=== PATIENT | male | born 1995 | race Caucasian/White ===

== ENCOUNTER 2021-06-11 10:32 | Emergency (ER) | payer BC, SELFPAY ==
--- NOTE | 2021-06-11 10:34 | ED.BACK ---
HPI - Back Pain/Injury General Chief Complaint: Back Pain/Injury Stated Complaint: lower back pain Time Seen by Provider: 06/11/21 10:33 Source: patient and RN notes reviewed History of Present Illness HPI Narrative: Patient is a 25-year-old male who presents the urgent care with complaints of pain right to the coccyx. Patient states that with some Google search he feels that it may be an abscess of some sort . Patient denies of any fevers, chills, nausea or vomiting. Patient denies of any known injury or fall to create the pain. Patient has been taking Tylenol without much relief. States that he noted the tenderness on Monday and seem to have gotten larger on . Denies of any increase in size or pain since afternoon. No other acute complaints. No acute distress noted. Patient aware of the plan of care. Some parts of this dictation were generated by voice recognition software and may contain typographical and/or grammatical inaccuracies. Related Data Home Medications Medication Instructions Recorded Confirmed No Home Medications 06/11/21 06/11/21 Allergies Allergy/AdvReac Type Severity Reaction Status Date / Time No Known Allergies Allergy Verified 06/11/21 10:46 Review of Systems Review of Systems: CONSTITUTIONAL: Denies fever, chills, or sweats. EYES: Denies visual changes, redness, or discharge. ENT: Denies rhinorrhea, congestion, sore throat, or otalgia. CARDIOVASCULAR: Denies chest pain, palpitations, or edema. RESPIRATORY: Denies cough or dyspnea. GASTROINTESTINAL: Denies abdominal pain, nausea, vomiting, or diarrhea. GENITOURINARY: Denies dysuria or hematuria. SKIN: Denies rash or itching. MUSCULOSKELETAL: Reports of low coccyx/back pain and tenderness NEUROLOGIC: Denies headache, numbness, or weakness. All other systems reviewed are negative, except as documented in HPI. PMFSH Comments At the time of my signature, I reviewed and agree with the nursing past medical, surgical, social, and family history. There is no relevant family history pertinent to the patient complaint. Exam Narrative: GENERAL: This is a well-nourished, well-developed patient, in no apparent distress. HEAD: normocephalic, atraumatic. EYES: PERRL. Sclera clear/white. Vision is grossly intact. EARS: External ears normal NOSE: External nose normal with no obvious nasal discharge, nares without redness, no rhinorrhea. THROAT: Mucous membranes moist NECK: Neck supple CARDIOVASCULAR: Regular rate and rhythm without murmurs, gallops, or rubs. RESPIRATORY: Clear to auscultation. Breath sounds equal bilaterally. No wheezes, rales, or rhonchi. SKIN: Approximately 5 x 5 cm firm erythemic slightly raised pilonidal cyst with moderate tenderness. Warm, intact with no suspicious lesions or rash, good texture and turgor. NEURO: awake, alert, and oriented to person, place and time. There were no obvious focal neurologic abnormalities. EXTREMITIES: No clubbing, cyanosis, or edema. Course Course Level of Care: Express Care Visit Vital Signs Vital signs: Vital Signs Temperature 98.2 F 06/11/21 10:38 Pulse Rate 75 06/11/21 10:38 Respiratory Rate 18 06/11/21 10:38 Blood Pressure 129/67 06/11/21 10:38 Pulse Oximetry 100 06/11/21 10:38 Temperature 98.2 F 06/11/21 10:46 Pulse Rate 75 06/11/21 10:46 Respiratory Rate 18 06/11/21 10:46 Blood Pressure 129/67 06/11/21 10:46 Pulse Oximetry 100 06/11/21 10:46 Reviewed MDM - Back Pain/Injury MDM Narrative Medical decision making narrative: Advised the patient to complete the oral antibiotic regimen as prescribed. Be sure to eat and drink with the medication. Do warm Epson salt baths and warm compress for comfort. Use ibuprofen/Tylenol as needed for pain. If you develop any increase in pain associated with severe swelling of the area, fever, nausea, vomiting?go to the emergency room. It is very common for pilonidal cyst to recur and therefore wo
[2021-06-11 10:38] VITALS: BP 129/67; PULSE 75; RESP 18; TEMP 36.8; O2SAT 100
[2021-06-11 10:46] VITALS: BP 129/67; PULSE 75; RESP 18; TEMP 36.8; O2SAT 100
== END 2021-06-11 10:55 | disposition home or self-care (01) ==
PROVIDERS: Emergency Provider Nurse Practitioner Family
DX: L05.91 Pilonidal cyst without abscess (principal)
CPT/HCPCS: 99213; G0463

== ENCOUNTER 2021-06-28 12:27 | Emergency (ER) | payer BC, SELFPAY ==
--- NOTE | 2021-06-28 12:32 | ED.SKABFB ---
HPI - Skin/Abscess/Foreign Bdy General Chief complaint: Skin/Abscess/Foreign Body Stated complaint: lower spine cyst Time Seen by Provider: 06/28/21 12:32 Source: patient and RN notes reviewed History of Present Illness HPI narrative: Patient is a 25-year-old male who presents the urgent care with complaints of a recurrent pilonidal cyst. Patient was seen at our facility on June 11 and prescribed doxycycline and ibuprofen. Patient states that it improved and therefore canceled his appointment with the general surgeon and his PCP. Patient states that he noticed recurrence with increased pain on . Patient states he has been taking the ibuprofen with mild improvement of pain. Denies of any fever, chills, nausea or vomiting. No other acute complaints. No acute distress noted. Patient aware of the plan of care. Some parts of this dictation were generated by voice recognition software and may contain typographical and/or grammatical inaccuracies. Related Data Home Medications Medication Instructions Recorded Confirmed ibuprofen 800 mg PO TID PRN 06/28/21 06/28/21 Allergies Allergy/AdvReac Type Severity Reaction Status Date / Time amoxicillin Allergy Mild Rash Verified 06/28/21 12:42 clarithromycin [From Biaxin] Allergy Mild Hives Verified 06/28/21 12:42 Penicillins Allergy Mild Rash Verified 06/28/21 12:42 Review of Systems Review of Systems: CONSTITUTIONAL: Denies fever, chills, or sweats. EYES: Denies visual changes, redness, or discharge. ENT: Denies rhinorrhea, congestion, sore throat, or otalgia. CARDIOVASCULAR: Denies chest pain, palpitations, or edema. RESPIRATORY: Denies cough or dyspnea. GASTROINTESTINAL: Denies abdominal pain, nausea, vomiting, or diarrhea. GENITOURINARY: Denies dysuria or hematuria. SKIN: Reports of a recurrent pilonidal cyst MUSCULOSKELETAL: Denies back pain, joint pain, or myalgia. NEUROLOGIC: Denies headache, numbness, or weakness. All other systems reviewed are negative, except as documented in HPI. PMFSH Comments At the time of my signature, I reviewed and agree with the nursing past medical, surgical, social, and family history. There is no relevant family history pertinent to the patient complaint. Exam Narrative: GENERAL: This is a well-nourished, well-developed patient, in no apparent distress. HEAD: normocephalic, atraumatic. EYES: PERRL. Sclera clear/white. Vision is grossly intact. EARS: External ears normal NOSE: External nose normal with no obvious nasal discharge, nares without redness, no rhinorrhea. THROAT: Mucous membranes moist NECK: Neck supple CARDIOVASCULAR: Regular rate and rhythm without murmurs, gallops, or rubs. RESPIRATORY: Clear to auscultation. Breath sounds equal bilaterally. No wheezes, rales, or rhonchi. SKIN: 7 x 7cm deep firm tender nonraised pilonidal cyst directly to the coccyx with a 4 x 3 cm erythemic center NEURO: awake, alert, and oriented to person, place and time. There were no obvious focal neurologic abnormalities. EXTREMITIES: No clubbing, cyanosis, or edema. Course Course Level of Care: Express Care Visit Vital Signs Vital signs: Vital Signs Temperature 98.3 F 06/28/21 12:34 Pulse Rate 90 06/28/21 12:34 Respiratory Rate 20 06/28/21 12:34 Blood Pressure 139/68 06/28/21 12:34 Pulse Oximetry 99 06/28/21 12:34 Temperature 98.3 F 06/28/21 12:34 Pulse Rate 90 06/28/21 12:34 Respiratory Rate 20 06/28/21 12:34 Blood Pressure 139/68 06/28/21 12:34 Pulse Oximetry 99 06/28/21 12:34 Reviewed MDM - Skin/Abscess/Foreign Bdy MDM Narrative Medical decision making narrative: Advised the patient to complete the oral antibiotic regimen as prescribed. Be sure to eat and drink with the medication. May do warm Epson salt baths or heating pad/ice to the area for comfort. Continue the ibuprofen as needed. Be sure to call your PCP/general surgeon for an appointment for reevaluation. Even if the pilonidal cyst i
[2021-06-28 12:34] VITALS: BP 139/68; PULSE 90; RESP 20; TEMP 36.8; O2SAT 99
== END 2021-06-28 12:57 | disposition home or self-care (01) ==
PROVIDERS: Emergency Provider Nurse Practitioner Family
DX: L05.91 Pilonidal cyst without abscess (principal)
CPT/HCPCS: 99213; G0463